=== PATIENT | female | born 1995 ===

== ENCOUNTER 2023-03-30 09:50 | Emergency (ER) | payer SELFPAY | END 2023-03-30 11:00 | disposition left against medical advice (07) | LOC: ER 09:50 | DX: R10.9 Unspecified abdominal pain (principal); Z53.21 Procedure and treatment not carried out due to patient leaving prior to being seen by health care provider ==

== ENCOUNTER 2023-03-30 11:37 | Emergency (ER) | payer SELFPAY ==
[~2023-03-30] VITALS: Ht 165.1 cm; Wt 84.7 kg
[2023-03-30 11:43] VITALS: BP 128/86; PULSE 117; RESP 18; O2SAT 97
== END 2023-03-30 21:39 | disposition left against medical advice (07) ==
LOC: ER 11:37
DX: O26.891 Other specified pregnancy related conditions, first trimester (principal); R10.30 Lower abdominal pain, unspecified; Z3A.10 10 weeks gestation of pregnancy